=== PATIENT | male | born 1970 | race Caucasian/White ===

== ENCOUNTER → 2019-12-31 | Outpatient (CLI) | payer BC | LOC: LAB 16:39 | PROVIDERS: ATTEND Family Medicine | DX: E87.5 Hyperkalemia (principal) | CPT/HCPCS: 36415; 84132 ==

== ENCOUNTER 2022-04-20 05:41 | Outpatient (CLI) | payer BC ==
[~2022-04-20] VITALS: Ht 167.6 cm; Wt 93.0 kg
[2022-04-20] MEDS ORDERED: PRAV40TA2 PO (11:14)
[2022-04-20] MEDS ORDERED: PIOG15TA67 PO (11:14)
[2022-04-20] MEDS ORDERED: METF-399 PO (11:14)
[2022-04-20] MEDS ORDERED: GLIP10TA13 PO (11:14)
[2022-04-20] MEDS ORDERED: TIRZ10PE SQ (11:14)
[2022-04-20] MEDS ORDERED: MTP25TSR PO (11:14)
[2022-04-20] MEDS ORDERED: EMPA25TA PO (11:14)
== END 2022-04-20 11:29 | disposition home or self-care (01) ==
LOC: PREOP 05:41
PROVIDERS: ATTEND Internal Medicine
DX: Z01.818 Encounter for other preprocedural examination (principal)

== ENCOUNTER 2022-04-27 07:38 | Day surgery (SDC) | payer BC ==
--- NOTE | 2022-04-19 05:46 | HISTORY AND PHYSICAL ---
COLONOSCOPY HISTORY AND PHYSICAL DATE OF ADMISSION: 04/27/2022 REFERRING PHYSICIAN: Adalgisa Platt MD. HISTORY OF PRESENT ILLNESS: The patient is a 52-year-old white male referred for his first screening colonoscopy by Dr. Platt. He is at slightly higher than average risk as he has had several older siblings, who had colon polyps removed and he has one sister diagnosed with breast cancer in her 50s. He is not aware of any family history for colon cancer. He denies melena, bright red blood per rectum, change in bowel habit or change in weight. PAST MEDICAL HISTORY: Type 2 diabetes. He also reports egg and wheat allergies that lead to a blistering eruption that does become pruritic. There is no reported generalized symptoms of shortness of breath, anaphylaxis etc. He has a history of hypertension, hyperlipidemia, and overweight status. He does not take any form of antiplatelet medication. PAST SURGICAL HISTORY: Significant for cholecystectomy number of years ago. FAMILY HISTORY: As noted in the HPI. SOCIAL HISTORY: He is . No children. 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 He has no past smoking history with rare small volume alcohol consumption. REVIEW OF SYSTEMS: CONSTITUTIONAL: Denies night sweats, chills, fever or change in weight. PULMONARY: Denies cough, wheezing or shortness of breath. CARDIOVASCULAR: Denies orthopnea, PND, pedal edema or syncope or chest discomfort. GASTROINTESTINAL: Denies bowel habit change, melena or bright red blood per rectum. PHYSICAL EXAMINATION: GENERAL: Reveals a pleasant white male, who appears to be in no acute distress. He does exhibit dystonic muscular activity involving some facial grimacing and right upper extremity motor activity. He has no evidence for waxing facies. No bradykinesia and no tremor. VITAL SIGNS: Blood pressure 115/72. HEENT: Unremarkable. Sclerae nonicteric. CHEST: Clear to auscultation. CARDIOVASCULAR: Reveals a regular rate and rhythm without murmur, S3 or S4. ABDOMEN: Soft, supple without mass, organomegaly or tenderness. EXTREMITIES: Reveal no cyanosis, clubbing or edema. ASSESSMENT AND PLAN: The patient is set up for his first screening colonoscopy being deemed to be of higher than average risk. He has had several siblings that have had colon polyps removed. Prep instructions were given. He does report an egg allergy and has been warned about association with Diprivan and cross reactivity. We discussed the importance of bringing this up with the anesthesiologist, who will see him prior to me seeing him before his colonoscopy to discuss this in more detail and whether or not he is truly a non-candidate for the medication. I thank you for the referral of this pleasant gentleman. Job ID: [id number] DocumentID: [id number] Dictated Date: 04/16/2022 15:21:57 Blanket Maker Date: 04/16/2022 15:47:00 Dictated By: RUSS RIZO MD [facility]
[~2022-04-27] VITALS: Ht 167.6 cm; Wt 93.0 kg
[~2022-04-27 07:38] MED LIST: EMPA25TA PO; GLIP10TA13 PO; METF-399 PO; MTP25TSR PO; PIOG15TA67 PO; PRAV40TA2 PO; TIRZ10PE SQ
[2022-04-27] MEDS ORDERED: LACTATED RINGERS 1,000 ML IV STA (07:41)
--- NOTE | 2022-04-27 08:02 | Pre-Op Note & Conscious Sedat ---
Pre-Operative Progress Note Date H&P Reviewed: Apr 27, 2022 Time H&P Reviewed: 08:01 History & Physical: H&P Reviewed, Patient Examed, No changes noted Pre-Op Diagnosis: screening Conscious Sedation Pre-Proced ASA Score 2 For ASA 3 and 4: Consider anesthesia and medical clearance. Also, for patients with a history of failed moderate sedation consider anesthesia. Airway Lungs Heart ASA score ASA 1: a normal healthy patient ASA 2: a patient with a mild systemic disease (mid diabetes, controlled hypertension, obesity ASA 3: a patient with a severe systemic disease that limits activity (angina, COPD, prior Myocardial infarction) ASA 4: a patient with an incapacitating disease that is a constant threat to life (CHF, renal failure) ASA 5: a moribund patient not expected to survive 24 hrs. (ruptured aneurysm) ASA 6: a declared brain- patient whose organs are being harvested. For emergent operations, add the letter E after the classification Mallampati Classification Grade 2 Sedation Plan Analgesia, Amnesia, Plan communicated to team members, Discussed options with patient/fam, Discussed risks with patient/fam The patient is an appropriate candidate to undergo the planned procedure, sedation, and anesthesia. The patient immediately re-assessed prior to indication. RUSS RIZO MD Apr 27, 2022 08:02
[2022-04-27 08:04] VITALS: BP 136/76
[2022-04-27] MEDS ORDERED: MIDAZOLAM 2 MG/2 ML (VERSED) VIAL ONE (08:35)
--- NOTE | 2022-04-27 09:07 | Progress Note-Post Operative ---
Post-Procedure Note Physician (s)/[employer] Supervisor (s) Physician RUSS RIZO MD Pre-Procedure Diagnosis Pre-Procedure Diagnosis: screening Post-Procedure Diagnosis Post-operative diagnosis: Prior to undergoing colonoscopy digital rectal evaluation was performed. Anal sphincter tone was normal and the perianal reflexes intact. No abnormalities were noted on digital inspection of the anal canal or distal rectal vault. The prostate was small and a nodular on digital inspection. The colonoscope was then inserted into the rectum and under direct visualization advanced to the cecum. The cecum was identified by identification of the ileocecal valve and appendiceal orifice. Photographic documentation was obtained. A careful inspection was made as the colonoscope was withdrawn. Quality the prep was good. Findings: There are no evidence for internal or external hemorrhoids in the rectum sigmoid colon descending colon and splenic flexure were unremarkable. Present in the mid transverse colon was a 1 cm sessile adenomatous appearing polyp. No evidence for ulceration was noted. It was biopsied and ablated with no subsequent blood loss. The remainder the transverse colon hepatic flexure and ascending colon were unremarkable. There was a 3 to 4 mm sessile adenomatous periappendiceal polyp. It was photographed and biopsied with ablation and no subsequent blood loss. A/P 1. 2 polyps were removed via hot forceps the larger one in the mid transverse colon at 1 cm and a smaller 3 x 4 mm polyp in a periappendiceal location with no blood loss. As long as there are no surprises on histopathology report would advocate repeat surveillance colonoscopy in 3 years. CC: Dr. Adalgisa RIZO,RUSS Palmer MD Apr 27, 2022 09:07
[2022-04-27 09:08] VITALS: BP 91/52
[2022-04-27 09:10] VITALS: BP 101/56
[2022-04-27 09:46] VITALS: BP 144/73
--- NOTE | 2022-04-27 09:58 | Anesthesia-General Post-Op ---
MAC Patient Condition Mental Status/LOC: Same as Preop Cardiovascular: Satisfactory Nausea/Vomiting: Absent Respiratory: Satisfactory Pain: Controlled Complications: Absent Post Op Complications Complications None Follow Up Care/Instructions Patient Instructions None needed. Anesthesiology Discharge Order Discharge Order Patient is doing well, no complaints, stable vital signs, no apparent adverse anesthesia problems. No complications reported per nursing. MARÍA HOLLEY CRNA Apr 27, 2022 09:58
== END 2022-04-27 09:56 | disposition home or self-care (01) ==
LOC: ENDO 07:38
PROVIDERS: ATTEND Internal Medicine
DX: Z12.11 Encounter for screening for malignant neoplasm of colon (principal); D12.3 Benign neoplasm of transverse colon; K63.5 Polyp of colon; E11.9 Type 2 diabetes mellitus without complications; Z79.84 Long term (current) use of oral hypoglycemic drugs; E66.9 Obesity, unspecified; Z68.33 Body mass index [BMI] 33.0-33.9, adult; Z91.012 Allergy to eggs; Z80.3 Family history of malignant neoplasm of breast
CPT/HCPCS: 88305